=== PATIENT | female | born 1930 | race Caucasian/White ===

== ENCOUNTER 2019-01-31 20:33 | Emergency (ER) | payer OTHER ==
--- NOTE | 2019-01-31 21:23 | ED ---
HPI Diabetic - HPI Summary HPI Summary: Pt is an 88 y/o F presenting to the ED with a chief complaint of needing insulin. She states she left her hometown to go on vacation and she forgot her insulin at home, which she did not notice until she only had 2 units left. She uses Humalog. She denies any physical sx, including fever or nausea. - History Of Current Complaint Chief Complaint: EDMedicationRefill Time Seen by Provider: 01/31/19 21:09 Hx Obtained From: Patient Onset/Duration: Lasting Hours, Still Present Timing: Hours Severity Currently: None Character: Alert Aggravating: Nothing Alleviating: Nothing Associated Signs & Symptoms: Negative Related History: Insulin Pump - Allergies/Home Medications Allergies/Adverse Reactions: Allergies Allergy/AdvReac Type Severity Reaction Status Date / Time No Known Allergies Allergy Verified 01/31/19 20:53 PMH/Surg Hx/FS Hx/Imm Hx Previously Healthy: Yes Endocrine/Hematology History: Reports: Hx Diabetes Cardiovascular History: Reports: Hx Hypertension Sensory History: Reports: Hx Contacts or Glasses Opthamlomology History: Reports: Hx Contacts or Glasses Infectious Disease History: No Infectious Disease History: Denies: Traveled Outside the [place] in Last 30 Days - Family History Known Family History: Positive: Hypertension, Diabetes, Other - colon CA - Social History Alcohol Use: None Hx Substance Use: No Substance Use Type: Reports: None Hx Tobacco Use: No Smoking Status (MU): Never Smoked Tobacco Review of Systems Negative: Fever Negative: Nausea All Other Systems Reviewed And Are Negative: Yes Physical Exam - Summary Physical Exam Summary: Appearance: Well-appearing, Well-nourished, lying in bed comfortable Skin: Warm, dry, no obvious rash Eyes: sclera anicteric, no conjunctival pallor ENT: mucous membranes moist Neck: deferred Respiratory: No signs of respiratory distress Cardiovascular: Appears well perfused, pulses are nml Abdomen: deferred Musculoskeletal: Moving all 4 extremities without obvious discomfort Neurological: Awake and alert, mentation is normal, speech is fluent and appropriate Psychiatric: affect is normal, does not appear anxious or depressed Triage Information Reviewed: Yes Vital Signs On Initial Exam: Initial Vitals Temp Pulse Resp BP Pulse Ox 98.4 F 58 16 179/55 97 01/31/19 20:45 01/31/19 20:45 01/31/19 20:45 01/31/19 20:45 01/31/19 20:45 Vital Signs Reviewed: Yes Diagnostics - Vital Signs Vital Signs Temp Pulse Resp BP Pulse Ox 01/31/19 20:45 98.4 F 58 16 179/55 97 - Laboratory Lab Statement: Any lab studies that have been ordered have been reviewed, and results considered in the medical decision making process. Diabetic Course/Dx - Course Course Of Treatment: Pt is an 88 y/o F presenting to the ED with a chief complaint of needing insulin. She states she left her hometown to go on vacation and she forgot her insulin at home, which she did not notice until she only had 2 units left. She uses Humalog. She denies any physical sx, including fever or nausea. Pt's medication refilled in ED. She will be sent home with dx of medication refill. She is stable and agreeable with this plan. - Diagnoses Provider Diagnoses: Medication refill Discharge ED - Sign-Out/Discharge Documenting (check all that apply): Patient Departure Patient Received Moderate/Deep Sedation with Procedure: No - Discharge Plan Condition: Stable Disposition: HOME Patient Education Materials: Medicine Refill (ED) Referrals: [facility] [Outside] Additional Instructions: Please follow up with your primary care provider within 2-3 days. Return to the emergency department with any new or worsening symptoms. - Billing Disposition and Condition Condition: STABLE Disposition: Home - Attestation Statements Document Initiated by Yudy: Yes Documenting Scribe: Alize Zavala Provider For Whom Yudy is Documenting (Include Credential): Osbaldo Abreu MD. Scribe Attestation: Alize Barr scribed for Osbaldo Abreu MD. on 02/01/19 at 1843. Scribe Documentation Reviewed: Yes Provider Attestation: The documentation as recorded by the Alize grace accurately reflects the service I personally performed and the decisions made by me, Osbaldo Abreu MD. Status of Scribe Document: Viewed
[2019-01-31 22:23] VITALS: BP 162/57
== END 2019-01-31 22:22 | disposition home or self-care (01) ==
LOC: ED 20:33
DX: E11.9 Type 2 diabetes mellitus without complications (principal); Z96.41 Presence of insulin pump (external) (internal); Z76.0 Encounter for issue of repeat prescription; I10 Essential (primary) hypertension
CPT/HCPCS: 99282